=== PATIENT | male | born 2000 | race African-American/Black ===

== ENCOUNTER → 2025-07-13 | Day surgery (SDC) | payer BC | LOC: EDBD → SDC 13:24 | PROVIDERS: ATTEND Internal Medicine Gastroenterology | PROC: 4A0 Measurement and Monitoring, Physiological Systems, Measurement (ICD-10-PCS; principal; 2025-07-13) | DX: K21.9 Gastro-esophageal reflux disease without esophagitis (principal); Z79.899 Other long term (current) drug therapy | CPT/HCPCS: 91034 ==